=== PATIENT | male | born 1950 | race Caucasian/White ===

== ENCOUNTER 2019-10-10 08:03 | Emergency (ER) | payer MEDICARE, OTHER ==
[~2019-10-10] VITALS: Ht 175.3 cm; Wt 80.0 kg
[2019-10-10 08:38] LABS: BASOPHILS % 1.3 % (0.0-2.0); HEMATOCRIT. 43.3 % (42.0-52.0); HEMOGLOBIN. 14.5 g/dL (14.0-18.0); MEAN CORPUSCULAR VOLUME 89.3 fL (80.0-94.0); MEAN PLATELET VOLUME 7.2 fl (7.4-10.4); MONOCYTES % 8.4 % (2.0-8.0); NEUTROPHILS % 65.3 % (40.0-76.0); PLATELET 289 x1000/uL (130-400); RED BLOOD CELL COUNT 4.85 mill/uL (4.7-6.1); RED CELL DISTRIBUTION WIDTH 13.3 % (11.6-14.6)
[2019-10-10 08:46] LABS: PROTHROMBIN TIME 10.6 sec (9.6-11.0)
[2019-10-10 08:48] LABS: CHLORIDE 108 mEq/L (98-107)
[2019-10-10 08:52] LABS: ETHANOL BLOOD < 10 mg/dL
[2019-10-10] MEDS ORDERED: CLONIDINE 0.1MG TABLET PO ONE (11:45)
[2019-10-10 13:12] VITALS: BP 169/80
== END 2019-10-10 13:14 | disposition home or self-care (01) ==
LOC: ER 08:34
DX: R55 Syncope and collapse (principal); S00.81XA Abrasion of other part of head, initial encounter; J01.90 Acute sinusitis, unspecified; I10 Essential (primary) hypertension; G40.909 Epilepsy, unspecified, not intractable, without status epilepticus; W01.0XXA Fall on same level from slipping, tripping and stumbling without subsequent striking against object, initial encounter; Y93.89 Activity, other specified; Y92.018 Other place in single-family (private) house as the place of occurrence of the external cause
CPT/HCPCS: 36415; 70486; 71045; 80053; 80320; 84484; 85025; 93005; 99285; G0480